=== PATIENT | male | born 1985 ===

== ENCOUNTER 2023-12-12 00:07 | Emergency (ER) | payer MEDICAID ==
[~2023-12-12] VITALS: Ht 185.4 cm; Wt 86.2 kg
[2023-12-12 00:25] LABS: BASOPHILS % (AUTO) 0.5 % (0.0-2.0); EOSINOPHILS % (AUTO) 0.2 % (0.0-7.0); HEMATOCRIT 43.2 % (36.7-47.1); HEMOGLOBIN 15.2 g/dL (12.5-16.3); LYMPHOCYTES # (AUTO) 1.4 K/uL (0.8-4.8); LYMPHOCYTES % (AUTO) 15.1 % (20.5-51.5); MEAN CORPUSCULAR HEMOGLOBIN 32.4 uug (23.8-33.4); MEAN CORPUSCULAR HGB CONC 35 g/dL (32.5-36.3); MEAN CORPUSCULAR VOLUME 91.9 fL (73.0-96.2); MONOCYTES # (AUTO) 0.4 K/uL (0.1-1.30); MONOCYTES % (AUTO) 4.2 % (0.0-11.0); NEUTROPHILS # (AUTO) 7.6 K/uL (1.8-8.9); PLATELET COUNT (AUTO) 134 K/uL (152-348); RED BLOOD CELL COUNT(AUTO) 4.69 MIL/uL (4.06-5.63); RED CELL DISTRIBUTION WIDTH 12.9 % (12.1-16.2); WHITE BLOOD COUNT (AUTO) 9.4 K/uL (3.6-10.2)
[2023-12-12 00:28] LABS: DIFFERENTIAL COMMENT 1
[2023-12-12] MEDS ORDERED: ONDANSETRON 4 MG/2 ML VIAL ONE (00:29)
[2023-12-12] MEDS: IV NORMAL SALINE 1000 ML BAG IV ONE ×2 (00:32→07:17)
[2023-12-12 00:33] LABS: CALCIUM 8.7 mg/dL (8.5-10.1); CREATININE 1.2 mg/dL (0.6-1.3); POTASSIUM 3.1 mmol/L (3.5-5.1)
[2023-12-12] MEDS: ONDANSETRON 4 MG/2 ML VIAL IV ONE (00:33)
[2023-12-12 00:39] LABS: ALBUMIN 4.5 g/dL (3.4-5.0); BILIRUBIN,TOTAL 0.7 mg/dL (0.2-1.0); MAGNESIUM 2.1 mg/dL (1.8-2.4); TOTAL PROTEIN, SERUM 7.5 g/dL (6.4-8.2)
[2023-12-12 00:43] LABS: LACTIC ACID 4.3 mmol/L (0.4-2.0)
[2023-12-12 01:02] LABS: ACETAMINOPHEN < 10.0 ug/mL (10-30)
[2023-12-12 01:09] LABS: ETHANOL 163 MG/DL (0-10)
[2023-12-12] MEDS: IV NORMAL SALINE 500 ML BAG IV ONE (03:10)
[2023-12-12 06:30] LABS: *BILIRUBIN,URIN NEGATIVE (NEGATIVE); *BLOOD, URINE NEGATIVE (NEGATIVE); *CLARITY,URINE CLEAR (CLEAR); *COLOR,URINE YELLOW (YELLOW); *KETONES,URINE NEGATIVE (NEGATIVE); *PROTEIN,URINE NEGATIVE (NEGATIVE); *UROBILINOGEN,URINE 0.2 E.U./dl (NORMAL); LEUKOCYTE ESTERASE ,URINE NEGATIVE (NEGATIVE); NITRITE, URINE NEGATIVE (NEGATIVE); PH,URINE 5.5 (5.0-8.0); UGLUCOSE NEGATIVE (NEGATIVE)
[2023-12-12 06:47] LABS: *AMPHETAMINE, URINE NEGATIVE (NEGATIVE); *BARBITURATE, URINE NEGATIVE (NEGATIVE); *BENZODIAZEPINE, URINE NEGATIVE (NEGATIVE); *CANNABINOID, URINE NEGATIVE (NEGATIVE); *COCCAINE, URINE NEGATIVE (NEGATIVE); *OPIATE, URINE NEGATIVE (NEGATIVE); *PHENCYCLIDINE SCREEN,URINE NEGATIVE (NEGATIVE)
[2023-12-12 08:05] LABS: FENTANYL, URINE NEGATIVE (NEGATIVE)
[2023-12-12] MEDS: IV D5/ 0.9% NACL 1,000 ML IV ONE (09:41)
[2023-12-12 11:42] LABS: CALCIUM 7.9 mg/dL (8.5-10.1); CREATININE 0.9 mg/dL (0.6-1.3)
[2023-12-12] MEDS: IV NS 1000 ML 1,000 ML IV ONE (12:03)
[2023-12-12 13:35] VITALS: O2SAT 96
== END 2023-12-12 13:49 | disposition short-term general hospital (02) ==
LOC: ER 00:11
DX: R41.82 Altered mental status, unspecified (principal); F10.129 Alcohol abuse with intoxication, unspecified; Y90.0 Blood alcohol level of less than 20 mg/100 ml
CPT/HCPCS: 80053; 80048; 81003; 82248; 83735; 85025; 36415; 71045; 70450; 99291; 96361; 96374; 83605 ×4; 80299; 80320; 80307; J2405; J7042; J7040 ×4; A4606; A4663; G0480